=== PATIENT | female | born 1990 | race Caucasian/White ===

== ENCOUNTER 2016-10-26 22:45 | Emergency (ER) | payer BC ==
[2016-10-27] MEDS ORDERED: Ibuprofen TAB* 600 MG PO ONE (00:40)
[2016-10-27 01:01] LABS: Hematocrit 41 % (35-47); Hemoglobin 13.3 g/dl (12.0-16.0); Mean Corpuscular HGB Conc 33 g/dl (31-36); Mean Corpuscular Hemoglobin 29 pg (27-31); Mean Corpuscular Volume 88 fL (80-97); Mean Platelet Volume 9 um3 (7.4-10.4); Red Blood Count 4.65 10^6/ul (4.0-5.4); Red Cell Distribution Width 13 % (10.5-15); White Blood Count 13.4 10^3/ul (3.5-10.8)
[2016-10-27 01:13] LABS: ALT 24 U/L (7-52); AST 19 U/L (13-39); Albumin 4.6 g/dL (3.2-5.2); Alkaline Phosphatase 61 U/L (34-104); Anion Gap 7 mmol/L (2-11); BUN/Creatinine Ratio 16.4 (8-20); Blood Urea Nitrogen 12 mg/dL (6-24); CO2 Carbon Dioxide 26 mmol/L (22-32); Calcium 9.7 mg/dL (8.6-10.3); Chloride 104 mmol/L (101-111); EGFR Non-African American 97.9 (>60); Globulin 2.5 g/dL (2-4); Glucose 78 mg/dL (70-100); Potassium 3.8 mmol/L (3.5-5.0); Sodium 137 mmol/L (133-145); Total Protein 7.1 g/dL (6.4-8.9)
[2016-10-27 01:25] LABS: TSH (Thyroid Stimulating Horm) 1.64 mcIU/mL (0.34-5.60)
[2016-10-27 01:52] LABS: Urine Bilirubin Negative (Negative); Urine Glucose Negative (Negative); Urine Nitrite Negative (Negative)
--- NOTE | 2016-10-27 02:15 | ED ---
Anita Parson Claudia, scribed for Collin Nam on 10/27/16 at 0006 . Palpitations / Dysrhythmia - HPI Summary HPI Summary: 26 year old female presents to the ED with palpitations and left anterior CP. Pt notes she has PMHx of PVC and Sx are similar today but she is also having left anterior CP radiating up her neck. She notes she has had these palpitations intermittently for the past 6 days and thought she should come to ED. Pt has always had thee Sx but they have been occurring more lately and she thought it might be due to her virus last week. There seems to be no aggravating or alleviating factors. - History of Current Complaint Chief Complaint: EDDysrhythmPalp Time Seen by Provider: 10/26/16 23:52 Hx Obtained From: Patient Onset/Duration: Sudden Onset, Still Present Character: Irregular Associated Signs & Symptoms: Chest Pain - Allergy/Home Medications Allergies/Adverse Reactions: Allergies Allergy/AdvReac Type Severity Reaction Status Date / Time No Known Allergies Allergy Unverified 05/05/16 10:14 PMH/Surg Hx/FS Hx/Imm Hx Previously Healthy: Yes Endocrine/Hematology History: Denies: Hx Diabetes, Hx Anemia GI History: Denies: Hx Jaundice - Surgical History Surgery Procedure, Year, and Place: Tonsillectomy & adenenoidectomy 1999. [place] teeth removal - 2010. Nevus removed - 2007. Ablation - 10/2015 - [facility] Infectious Disease History: No Infectious Disease History: Denies: Traveled Outside the [place] in Last 30 Days - Family History Known Family History: Negative: Hypertension - Social History Occupation: Employed Full-time Lives: With Family Alcohol Use: 1 drink q2wks Substance Use Type: Reports: None Smoking Status (MU): Never Smoked Tobacco Review of Systems Constitutional: Negative Eyes: Negative ENT: Negative Positive: Palpitations, Chest Pain Positive: Cough Gastrointestinal: Negative Genitourinary: Negative Musculoskeletal: Negative Skin: Negative Neurological: Negative Psychological: Normal All Other Systems Reviewed And Are Negative: Yes Physical Exam Triage Information Reviewed: Yes Vital Signs On Initial Exam: Initial Vitals Temp Pulse Resp BP Pulse Ox 98.3 F 93 20 116/75 100 10/26/16 22:49 10/26/16 22:49 10/26/16 22:49 10/26/16 22:49 10/26/16 22:49 Vital Signs Reviewed: Yes Appearance: Positive: Well-Appearing, No Pain Distress Skin: Positive: Warm, Skin Color Reflects Adequate Perfusion, Dry Head/Face: Positive: Normal Head/Face Inspection Eyes: Positive: EOMI, CARLIE ENT: Positive: Normal ENT inspection Neck: Positive: Supple, Nontender Respiratory/Lung Sounds: Positive: Clear to Auscultation, Breath Sounds Present Cardiovascular: Positive: RRR, Pulses are Symmetrical in both Upper and Lower Extremities Abdomen Description: Positive: Nontender, Soft Musculoskeletal: Positive: Normal, Strength/ROM Intact Neurological: Positive: Normal, Sensory/Motor Intact, Alert, Oriented to Person Place, Time Diagnostics - Vital Signs Vital Signs Temp Pulse Resp BP Pulse Ox 10/26/16 22:49 98.3 F 93 20 116/75 100 - Laboratory Result Diagrams: 10/27/16 00:35 10/27/16 00:35 Lab Statement: Any lab studies that have been ordered have been reviewed, and results considered in the medical decision making process. - Radiology CXR Xray Interpretation: No Acute Changes Radiology Interpretation Completed By: ED Physician - EKG 1:00 Cardiac Rate: NL EKG Rhythm: Sinus Rhythm - 91 BEATS/MIN Course/Dx - Course Assessment/Plan: AFTER EKG, CXR AND LAB/URINE ANALYSIS PT IS AGREEABLE WITH THE PLAN TO BE D/C HOME WIHT FOLLOW-UP WITH PCP THIS WEEK. - Diagnoses Provider Diagnoses: Palpitations, PVC's (premature ventricular contractions) Discharge - Discharge Plan Condition: Stable Disposition: HOME Patient Education Materials: Premature Ventricular Contractions (ED), Palpitations (ED) Referrals: Magali Albright MD [Primary Care Provider] - 3 Days The documentation as recorded by the Anita pacheco Claudia accurately reflects the service I personally performed and the decisions made by Cyril lorenzo Emmanuel.
[2016-10-27 02:18] VITALS: BP 111/78
--- NOTE | 2016-10-27 07:44 | RAD ---
HISTORY: Palpitations COMPARISONS: None VIEWS: 2: Frontal dual-energy and lateral views of the chest. FINDINGS: CARDIOMEDIASTINAL SILHOUETTE: The cardiomediastinal silhouette is normal. JUAN: The juan are normal. PLEURA: The costophrenic angles are sharp. No pleural abnormalities are noted. LUNG PARENCHYMA: There is hyperinflation with flattening of the diaphragm and expansion of the AP diameter of the chest. ABDOMEN: The upper abdomen is clear. There is no subphrenic gas. BONES AND SOFT TISSUES: No bone or soft tissue abnormalities are noted. OTHER: None. IMPRESSION: HYPERINFLATION, CONSISTENT WITH COPD. NO ACTIVE CARDIOPULMONARY DISEASE.
== END 2016-10-27 02:24 | disposition home or self-care (01) ==
LOC: ED 22:45
DX: R00.2 Palpitations (principal); I49.3 Ventricular premature depolarization; R07.9 Chest pain, unspecified; R05 Cough
CPT/HCPCS: 36415; 71020; 80053; 81003; 83880; 84443; 84484; 84702; 85025; 85610; 85730; 93005; 99283; A9270-GY

== ENCOUNTER 2017-05-03 13:21 | Emergency (ER) | payer BC ==
[2017-05-03] MEDS ORDERED: NS 0.9% 1000 ML* 2,000 ML IV ONE (15:31)
--- NOTE | 2017-05-03 16:00 | RAD ---
INDICATION: Tachycardia. COMPARISON: Comparison is made with a prior chest x-ray study from October 27, 2016. TECHNIQUE: A portable view of the chest was obtained. FINDINGS: Cardiac and mediastinal contours appear to be within normal limits. The lungs are hyperinflated and clear. No pleural effusion or pneumothorax is seen. IMPRESSION: NO EVIDENCE FOR ACUTE DISEASE.
[2017-05-03 16:18] LABS: Hematocrit 45 % (35-47); Hemoglobin 14.5 g/dl (12.0-16.0); Mean Corpuscular HGB Conc 33 g/dl (31-36); Mean Corpuscular Hemoglobin 28 pg (27-31); Mean Corpuscular Volume 87 fL (80-97); Mean Platelet Volume 9 um3 (7.4-10.4); Red Cell Distribution Width 13 % (10.5-15); White Blood Count 12.4 10^3/ul (3.5-10.8)
[2017-05-03 16:58] LABS: TSH (Thyroid Stimulating Horm) 1.25 mcIU/mL (0.34-5.60)
[2017-05-03 17:02] LABS: ALT 14 U/L (7-52); AST 17 U/L (13-39); Albumin 4.8 g/dL (3.2-5.2); Alkaline Phosphatase 53 U/L (34-104); Anion Gap 9 mmol/L (2-11); BUN/Creatinine Ratio 17.9 (8-20); Blood Urea Nitrogen 12 mg/dL (6-24); C Reactive Protein < 1.00 mg/L (< 5.00); CO2 Carbon Dioxide 24 mmol/L (22-32); Calcium 10.1 mg/dL (8.6-10.3); Chloride 103 mmol/L (101-111); Creatine Kinase 46 U/L (10-223); EGFR African American 139.1 (>60); EGFR Non-African American 108.1 (>60); Globulin 2.7 g/dL (2-4); Glucose 84 mg/dL (70-100); Lipase 21 U/L (11.0-82.0); Magnesium 2.1 mg/dL (1.9-2.7); Potassium 3.6 mmol/L (3.5-5.0); Sodium 136 mmol/L (133-145); Total Protein 7.5 g/dL (6.4-8.9)
[2017-05-03 18:13] VITALS: BP 116/79
[2017-05-03] MEDS ORDERED: Metoprolol Tartrate TAB* 25 MG PO ONE (18:20)
--- NOTE | 2017-05-03 18:30 | ED ---
Jake Parson Alfonso, scribed for Lefty Verdugo MD on 05/03/17 at 1544 . Palpitations / Dysrhythmia - HPI Summary HPI Summary: This patient is a 26 year old F presenting to [facility] with a chief complaint of racing palpitations since 1200 today. The patient rates the pain 0/10 in severity. Symptoms aggravated by exertion. Symptoms alleviated by nothing. Patient denies CP, abdominal pain, and loss of appetite. PMHx of SVT with an ablation (October 2015). Medications reviewed. - History of Current Complaint Chief Complaint: EDDysrhythmPalp Time Seen by Provider: 05/03/17 15:30 Hx Obtained From: Patient Onset/Duration: Sudden Onset, Lasting Hours - 1200 today, Still Present Timing: Constant Severity Initially: Moderate Severity Currently: Moderate Character: Fast Aggravating: Exertion Alleviating: Nothing Associated Signs & Symptoms: Negative Related History: Similar Episode/Dx as - SVT with an ablation - Allergy/Home Medications Allergies/Adverse Reactions: Allergies Allergy/AdvReac Type Severity Reaction Status Date / Time No Known Allergies Allergy Unverified 05/03/17 13:32 PMH/Surg Hx/FS Hx/Imm Hx Endocrine/Hematology History: Denies: Hx Diabetes, Hx Anemia Cardiovascular History: Reports: Other Cardiovascular Problems/Disorders - SVT with an ablation(October 2015) Respiratory History: Reports: Hx Asthma GI History: Denies: Hx Jaundice - Surgical History Surgery Procedure, Year, and Place: Tonsillectomy & adenenoidectomy 1999. [place] teeth removal - 2010. Nevus removed - 2007. Ablation - 10/2015 - [facility] Infectious Disease History: No Infectious Disease History: Denies: Traveled Outside the [place] in Last 30 Days - Family History Known Family History: Negative: Hypertension - Social History Alcohol Use: Rare Substance Use Type: Reports: None Hx Tobacco Use: No Smoking Status (MU): Never Smoked Tobacco Review of Systems Negative: Fever Positive: Palpitations. Negative: Chest Pain Positive: Other - Negative loss of appetite.. Negative: Abdominal Pain All Other Systems Reviewed And Are Negative: Yes Physical Exam Triage Information Reviewed: Yes Vital Signs On Initial Exam: Initial Vitals Temp Pulse Resp BP Pulse Ox 98.2 F 122 20 140/91 99 05/03/17 13:32 05/03/17 13:32 05/03/17 13:32 05/03/17 13:32 05/03/17 13:32 Vital Signs Reviewed: Yes Appearance: Positive: Well-Appearing, No Pain Distress Skin: Positive: Warm, Skin Color Reflects Adequate Perfusion, Dry Head/Face: Positive: Normal Head/Face Inspection Eyes: Positive: EOMI, CARLIE ENT: Positive: Normal ENT inspection Neck: Positive: Supple, Nontender Respiratory/Lung Sounds: Positive: Clear to Auscultation, Breath Sounds Present Cardiovascular: Positive: Other - During exam heart rhythm NSR and BPM varies between BPM 90-108. Abdomen Description: Positive: Nontender, Soft Bowel Sounds: Positive: Present Musculoskeletal: Positive: Normal, Strength/ROM Intact Neurological: Positive: Normal, Sensory/Motor Intact, Alert, Oriented to Person Place, Time Psychiatric: Positive: Affect/Mood Appropriate - [place] Coma Scale Coma Scale Total: 15 Diagnostics - Vital Signs Vital Signs Temp Pulse Resp BP Pulse Ox 05/03/17 14:30 103 17 113/75 99 05/03/17 14:16 98.5 F 114 20 138/89 100 05/03/17 14:15 138/89 05/03/17 13:32 98.2 F 122 20 140/91 99 - Laboratory Lab Results: Lab Results 05/03/17 05/03/17 05/03/17 Range/Units 15:55 15:55 15:55 WBC (3.5-10.8) 10^3/ul RBC (4.0-5.4) 10^6/ul Hgb (12.0-16.0) g/dl Hct (35-47) % MCV (80-97) fL MCH (27-31) pg MCHC (31-36) g/dl RDW (10.5-15) % Plt Count (150-450) 10^3/ul MPV (7.4-10.4) um3 Neut % (Auto) (38-83) % Lymph % (Auto) (25-47) % Parke % (Auto) (1-9) % Eos % (Auto) (0-6) % Baso % (Auto) (0-2) % Absolute Neuts (auto) (1.5-7.7) 10^3/ul Absolute Lymphs (auto) (1.0-4.8) 10^3/ul Absolute Monos (auto) (0-0.8) 10^3/ul Absolute Eos (auto) (0-0.6) 10^3/ul Absolute Basos (auto) (0-0.2) 10^3/ul Absolute Nucleated RBC 10^3/ul Nucleated RBC % INR (Anticoag Therapy) 1.02 (0.89-1.11) APTT 30.9 (26.0-36.3) seconds D-Dimer, Quantitative < 200 (Less Than 230) ng/mL Sodium 136 (133-145) mmol/L Potassium 3.6 (3.5-5.0) mmol/L Chloride 103 (101-111) mmol/L Carbon Dioxide 24 (22-32) mmol/L Anion Gap 9 (2-11) mmol/L BUN 12 (6-24) mg/dL Creatinine 0.67 (0.51-0.95) mg/dL Est GFR ( Amer) 139.1 (>60) Est GFR (Non-Af Amer) 108.1 (>60) BUN/Creatinine Ratio 17.9 (8-20) Glucose 84 (70-100) mg/dL Lactic Acid (0.5-2.0) mmol/L Calcium 10.1 (8.6-10.3) mg/dL Magnesium 2.1 (1.9-2.7) mg/dL Total Bilirubin 0.60 (0.2-1.0) mg/dL AST 17 (13-39) U/L ALT 14 (7-52) U/L Alkaline Phosphatase 53 (34-104) U/L Total Creatine Kinase 46 (10-223) U/L CK-MB (CK-2) 0.5 L (0.6-6.3) ng/mL Troponin I 0.00 (<0.04) ng/mL C-Reactive Protein < 1.00 (< 5.00) mg/L B-Natriuretic Peptide 22 ( - 100) pg/mL Total Protein 7.5 (6.4-8.9) g/dL Albumin 4.8 (3.2-5.2) g/dL Globulin 2.7 (2-4) g/dL Albumin/Globulin Ratio 1.8 (1-3) Lipase 21 (11.0-82.0) U/L TSH 1.25 (0.34-5.60) mcIU/mL Beta HCG, Quant < 0.60 mIU/mL 05/03/17 05/03/17 Range/Units 15:55 15:55 WBC 12.4 H (3.5-10.8) 10^3/ul RBC 5.10 (4.0-5.4) 10^6/ul Hgb 14.5 (12.0-16.0) g/dl Hct 45 (35-47) % MCV 87 (80-97) fL MCH 28 (27-31) pg MCHC 33 (31-36) g/dl RDW 13 (10.5-15) % Plt Count 256 (150-450) 10^3/ul MPV 9 (7.4-10.4) um3 Neut % (Auto) 75.1 (38-83) % Lymph % (Auto) 18.2 L (25-47) % Parke % (Auto) 5.3 (1-9) % Eos % (Auto) 0.7 (0-6) % Baso % (Auto) 0.7 (0-2) % Absolute Neuts (auto) 9.3 H (1.5-7.7) 10^3/ul Absolute Lymphs (auto) 2.3 (1.0-4.8) 10^3/ul Absolute Monos (auto) 0.7 (0-0.8) 10^3/ul Absolute Eos (auto) 0.1 (0-0.6) 10^3/ul Absolute Basos (auto) 0.1 (0-0.2) 10^3/ul Absolute Nucleated RBC 0.01 10^3/ul Nucleated RBC % 0.1 INR (Anticoag Therapy) (0.89-1.11) APTT (26.0-36.3) seconds D-Dimer, Quantitative (Less Than 230) ng/mL Sodium (133-145) mmol/L Potassium (3.5-5.0) mmol/L Chloride (101-111) mmol/L Carbon Dioxide (22-32) mmol/L Anion Gap (2-11) mmol/L BUN (6-24) mg/dL Creatinine (0.51-0.95) mg/dL Est GFR ( Amer) (>60) Est GFR (Non-Af Amer) (>60) BUN/Creatinine Ratio (8-20) Glucose (70-100) mg/dL Lactic Acid 0.9 (0.5-2.0) mmol/L Calcium (8.6-10.3) mg/dL Magnesium (1.9-2.7) mg/dL Total Bilirubin (0.2-1.0) mg/dL AST (13-39) U/L ALT (7-52) U/L Alkaline Phosphatase (34-104) U/L Total Creatine Kinase (10-223) U/L CK-MB (CK-2) (0.6-6.3) ng/mL Troponin I (<0.04) ng/mL C-Reactive Protein (< 5.00) mg/L B-Natriuretic Peptide ( - 100) pg/mL Total Protein (6.4-8.9) g/dL Albumin (3.2-5.2) g/dL Globulin (2-4) g/dL Albumin/Globulin Ratio (1-3) Lipase (11.0-82.0) U/L TSH (0.34-5.60) mcIU/mL Beta HCG, Quant mIU/mL Result Diagrams: 05/03/17 15:55 05/03/17 15:55 Lab Statement: Any lab studies that have been ordered have been reviewed, and results considered in the medical decision making process. - Radiology CXR Radiology Interpretation Completed By: Radiologist - NO EVIDENCE FOR ACUTE DISEASE. ED physician has reviewed this radiology report and agrees. - EKG 1345 Cardiac Rate: Tachycardia - BPM 102 EKG Rhythm: Sinus Tachycardia ST Segment: Normal Ectopy: None Course/Dx - Course Course Of Treatment: WELL IN ED. AT REST HR IS MOSTLY IN THE 90'S. DISCUSSED RESULTS WITH PATIENT/MOTHER. HALTER MONITOR ORDERED AND METOPROLOL 12.5MG PO BID (PATIENT HAS RX AT HOME FOR MORE). PATIENT WILL F/U WITH HER [facility] ( IN [place]). WILL RETURN IF WORSE OR ANY CONCERNS. - Diagnoses Provider Diagnoses: Tachycardia - Physician Notifications Discussed Care Of Patient With: Genevieve Cervantes Time Discussed With Above Provider: 16:46 Instructed by Provider To: Other - Consulted Dr. Cervantes (network engineer administrator) who recommended PCP follow up. Discharge - Discharge Plan Condition: Stable Disposition: HOME Patient Education Materials: Tachycardia (ED) Referrals: Magali Albright MD [Primary Care Provider] - Additional Instructions: FOLLOW UP WITH YOUR PRIMARY CARE DOCTOR AND YOUR T[facility]. A 24 HOUR HALTER MONITOR HAS BEEN ORDERED. RETURN TO THE EMERGENCY DEPARTMENT FOR ANY WORSENING OF YOUR CONDITION; CHEST PAIN, SHORTNESS OF BREATH, YOU FEEL ILL, YOU FEEL LIKE PASSING OUT OR QUESTIONS OR CONCERNS. The documentation as recorded by the Jake pacheco Alfonso accurately reflects the service I personally performed and the decisions made by me, Lefty Verdugo MD.
== END 2017-05-03 18:57 | disposition home or self-care (01) ==
LOC: ED 13:21
DX: I47.1 Supraventricular tachycardia (principal)
CPT/HCPCS: 36415; 71010; 80053; 82550; 82553; 83605; 83690; 83735; 83880; 84443; 84484; 84702; 85025; 85379; 85610; 85730; 86140; 93005

== ENCOUNTER 2018-01-21 19:38 | Emergency (ER) | payer BC ==
[2018-01-21 20:54] VITALS: BP 118/76
--- NOTE | 2018-01-22 01:52 | ED ---
Britta Parson Julia, scribed for Cortez Fox MD on 01/21/18 at 2027 . Complex/Multi-Sys Presentation - HPI Summary HPI Summary: This patient is a 27 year old F presenting to [facility] due to exposure to fecal matter with blood in it prior to arrival. 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 Her hepatitis vaccines are utd. She states the patient states no PMHx, but is confused. - History Of Current Complaint Chief Complaint: EDExposureBodyFluid Time Seen by Provider: 01/21/18 20:19 Hx Obtained From: Patient Onset/Duration: Sudden Onset Severity Currently: None Location: Negative Related History: Other - bodily fluid exposure - Allergies/Home Medications Allergies/Adverse Reactions: Allergies Allergy/AdvReac Type Severity Reaction Status Date / Time No Known Allergies Allergy Unverified 01/21/18 19:53 PMH/Surg Hx/FS Hx/Imm Hx Endocrine/Hematology History: Denies: Hx Diabetes, Hx Anemia Cardiovascular History: Reports: Other Cardiovascular Problems/Disorders - SVT with an ablation(October 2015) Respiratory History: Reports: Hx Asthma GI History: Denies: Hx Jaundice - Surgical History Surgery Procedure, Year, and Place: Tonsillectomy & adenenoidectomy 1999. [place] teeth removal - 2010. Nevus removed - 2007. Ablation - 10/2015 - [facility] Infectious Disease History: No Infectious Disease History: Denies: Traveled Outside the [place] in Last 30 Days - Family History Known Family History: Negative: Hypertension - Social History Occupation: Employed Full-time Alcohol Use: Rare Substance Use Type: Reports: None Hx Tobacco Use: No Smoking Status (MU): Never Smoked Tobacco Review of Systems Positive: Other - bodily fluid exposure Gastrointestinal: Negative All Other Systems Reviewed And Are Negative: No Physical Exam - Summary Physical Exam Summary: Appearance: Well-appearing, Well-nourished, lying in bed comfortably Skin: Warm, dry, no obvious rash Eyes: sclera anicteric, no conjunctiva pallor ENT: mucous membranes moist, pharynx appears normal Neck: Supple, nontender Respiratory: Clear to auscultation, no signs of respiratory distress Cardiovascular: Normal S1, S2. No murmurs. Normal distal pulses in tibial and radial bilaterally. Abdomen: Soft, nontender, normal active bowel sounds present Musculoskeletal: Normal, Strength/ROM Intact Neurological: A&Ox3, awake and alert, mentation is normal, speech is fluent and appropriate Psychiatric: affect is normal, does not appear anxious or depressed Triage Information Reviewed: Yes Vital Signs On Initial Exam: Initial Vitals Temp Pulse Resp BP Pulse Ox 98.7 F 72 16 144/97 99 01/21/18 19:50 01/21/18 19:50 01/21/18 19:50 01/21/18 19:50 01/21/18 19:50 Vital Signs Reviewed: Yes Diagnostics - Vital Signs Vital Signs Temp Pulse Resp BP Pulse Ox 01/21/18 19:50 98.7 F 72 16 144/97 99 - Laboratory Lab Statement: Any lab studies that have been ordered have been reviewed, and results considered in the medical decision making process. Complex Multi-Symp Course/Dx - Diagnoses Provider Diagnoses: Exposure to potentially hazardous body fluids Discharge - Sign-Out/Discharge Documenting (check all that apply): Discharge/Admit/Transfer - Discharge Plan Condition: Good Disposition: HOME Referrals: Magali Albright MD [Primary Care Provider] - Additional Instructions: This is a very low risk exposure and does not warrant post exposure prophylaxis. Followup with your employer per their protocol. - Billing Disposition and Condition Condition: GOOD Disposition: HOME The documentation as recorded by the Britta pacheco Julia accurately reflects the service I personally performed and the decisions made by , Cortez Fox MD.
== END 2018-01-21 20:53 | disposition home or self-care (01) ==
LOC: ED 19:38
DX: Z77.21 Contact with and (suspected) exposure to potentially hazardous body fluids (principal)
CPT/HCPCS: 36415; 86706; 86803; 87340; 99282

== ENCOUNTER → 2019-01-29 03:02 | Emergency (ER) | payer BC ==
[~2019-01-29 03:02] MED LIST: Ketorolac INJ* 30 MG/ML 1 ML VIAL IV PUSH ONE; Metoclopramide IV* 5 MG/ML 2 ML VIAL IV SLOW PU ONE; NS 0.9% 1000 ML** 1,000 ML IV ONE; diPHENhydraMINE IV* 50 MG/ML 1 ml VIAL (BENADRYL) SLOW PUSH ONE
--- NOTE | 2019-01-29 03:29 | ED ---
Headache - HPI Summary HPI Summary: This patient is a 28 year old female presenting to [facility] with a chief complaint of migraines since earlier tonight. She thinks it is related to the Paxil she is taking, in which she recently increased her dose from 5 mg to 10 mg. The patient states since Monday she's had left sided parasthesia that now is moving to her right side. She rates her pain 7/10 in severity. She states she does not typically have migraines. She reports nausea. Acetaminophen [Tylenol] 650 mg PO Q4HR PRN 05/05/16 [History Confirmed 05/05/16] Albuterol 0.5% CONC NEB.IRIS* Q4HR PRN 05/05/16 [History] Albuterol HFA INHALER* [Ventolin HFA Inhaler*] 2 puff INH Q4H PRN 05/05/16 [ History Confirmed 05/05/16] Ergocalciferol (Vitamin D2) [Vitamin D2] 2,000 unit PO DAILY 05/05/16 [History Confirmed 05/05/16] Atenolol 25 mg PO DAILY 01/29/19 [History Confirmed 01/29/19] PARoxetine HCl [Paxil] 10 mg PO DAILY 01/29/19 [History Confirmed 01/29/19] - History Of Current Complaint Chief Complaint: EDGeneral Stated Complaint: "MIGRAIN/POS SYNCOPE" PER PT Hx Obtained From: Patient Timing: Constant, Hours - Allergies/Home Medications Allergies/Adverse Reactions: Allergies Allergy/AdvReac Type Severity Reaction Status Date / Time No Known Allergies Allergy Unverified 01/29/19 03:08 Home Medications: Home Medications Atenolol 25 mg PO DAILY 01/29/19 [History Confirmed 01/29/19] PARoxetine HCl [Paxil] 10 mg PO DAILY 01/29/19 [History Confirmed 01/29/19] PMH/Surg Hx/FS Hx/Imm Hx Endocrine/Hematology History: Denies: Hx Diabetes, Hx Anemia Cardiovascular History: Reports: Other Cardiovascular Problems/Disorders - SVT with an ablation(October 2015) Respiratory History: Reports: Hx Asthma GI History: Denies: Hx Jaundice - Surgical History Surgery Procedure, Year, and Place: Tonsillectomy & adenenoidectomy 1999. [place] teeth removal - 2010. Nevus removed - 2007. Ablation - 10/2015 - [facility] Infectious Disease History: No Infectious Disease History: Denies: Traveled Outside the [place] in Last 30 Days - Family History Known Family History: Negative: Hypertension - Social History Alcohol Use: Rare Substance Use Type: Reports: None Hx Tobacco Use: No Smoking Status (MU): Never Smoked Tobacco Review of Systems Positive: Nausea Positive: Headache, Paresthesia All Other Systems Reviewed And Are Negative: Yes Physical Exam - Summary Physical Exam Summary: VITAL SIGNS: Reviewed. GENERAL: Patient is a well-developed and nourished FEMALE who is lying comfortable in the stretcher. Patient is not in any acute respiratory distress. HEAD AND FACE: No signs of trauma. No ecchymosis, hematomas or skull depressions. No sinus tenderness. EYES: PERRLA, EOMI x 2, No injected conjunctiva, no nystagmus. EARS: Hearing grossly intact. Ear canals and tympanic membranes are within normal limits. MOUTH: Oropharynx within normal limits. NECK: Supple, trachea is midline, no adenopathy, no JVD, no carotid bruit, no c- spine tenderness, neck with full ROM CHEST: Symmetric, no tenderness at palpation LUNGS: Clear to auscultation bilaterally. No wheezing or crackles. CVS: Regular rate and rhythm, S1 and S2 present, no murmurs or gallops appreciated. ABDOMEN: Soft, non-tender. No signs of distention. No rebound no guarding, and no masses palpated. Bowel sounds are normal. EXTREMITIES: FROM in all major joints, no edema, no cyanosis or clubbing. NEURO: Alert and oriented x 3. No acute neurological deficits. Speech is normal and follows commands. SKIN: Dry and warm Triage Information Reviewed: Yes Vital Signs On Initial Exam: Initial Vitals Temp Pulse Resp BP Pulse Ox 97.6 F 112 20 142/98 100 01/29/19 03:04 01/29/19 03:04 01/29/19 03:04 01/29/19 03:04 01/29/19 03:04 Vital Signs Reviewed: Yes Diagnostics - Vital Signs Vital Signs Temp Pulse Resp BP Pulse Ox 01/29/19 03:04 97.6 F 112 20 142/98 100 - Laboratory Lab Statement: Any lab studies that have been ordered have been reviewed, and results considered in the medical decision making process. Headache Course/Dx - Course Course Of Treatment: This patient is a 28 year old female presenting to [facility] with a chief complaint of migraines since earlier tonight. After treatment the patient felt better and is ready to go home. A plan for discharge was discussed with the patient and she was agreeable with this plan. - Diagnoses Provider Diagnoses: Headache Discharge - Sign-Out/Discharge Documenting (check all that apply): Patient Departure - Discharge Patient Received Moderate/Deep Sedation with Procedure: No - Discharge Plan Condition: Stable Disposition: HOME Patient Education Materials: Acute Headache (ED) Forms: *Work Release Referrals: Magali Albright MD [Primary Care Provider] - Additional Instructions: Return to ED with any new or worsening symptoms. - Attestation Statements Document Initiated by Scribe: Yes Documenting Scribe: Haile Ruiz Provider For Whom Perez is Documenting (Include Credential): Cal Howard MD Scribe Attestation: Haile Parson, scribed for Cal Howard MD on 01/29/19 at 0336. Status of Scribe Document: Ready
[2019-01-29 05:22] VITALS: BP 117/80
== END | disposition home or self-care (01) ==
LOC: ED 03:02
DX: R51 Headache (principal); I47.1 Supraventricular tachycardia; J45.909 Unspecified asthma, uncomplicated
CPT/HCPCS: 96361; 96374; 96375; 99283; J1200; J1885; J2765